=== PATIENT | female | born 1980 | race Caucasian/White ===

== ENCOUNTER 2022-03-04 15:53 | Emergency (ER) | payer OTHER ==
[2022-03-04] MEDS ORDERED: Boostrix 0.5 ML (Tdap) VIAL (>/=7 yrs of age) ONE (16:02)
[2022-03-04] MEDS ORDERED: Lidocaine 1% (PF) 30 ML VIAL ONE ×2 (16:02→16:11)
[2022-03-04] MEDS ORDERED: Bacitracin 1 PK ONE (16:27)
== END 2022-03-04 16:40 | disposition home or self-care (01) ==
LOC: NAV ERS 15:53
DX: S51.812A Laceration without foreign body of left forearm, initial encounter (principal); F17.210 Nicotine dependence, cigarettes, uncomplicated; W45.8XXA Other foreign body or object entering through skin, initial encounter
CPT/HCPCS: 12002; 90471; 90715; J2001

== ENCOUNTER 2022-03-16 12:14 | Emergency (ER) | payer OTHER | END 2022-03-16 12:50 | disposition home or self-care (01) | LOC: NAV ERS 12:14 | DX: S51.811D Laceration without foreign body of right forearm, subsequent encounter (principal); X58.XXXD Exposure to other specified factors, subsequent encounter ==

== ENCOUNTER 2022-04-04 15:03 | Emergency (ER) | payer OTHER ==
[2022-04-04] MEDS ORDERED: Ibuprofen 800 MG TAB ONE (15:22)
[2022-04-04] MEDS ORDERED: Lidocaine 2% PF 100 mg/5 ml Syringe ONE (15:46)
[2022-04-04] MEDS ORDERED: Bacitracin 1 PK ONE (16:26)
== END 2022-04-04 16:45 | disposition home or self-care (01) ==
LOC: NAV ERS 15:03
DX: S51.812A Laceration without foreign body of left forearm, initial encounter (principal); F17.210 Nicotine dependence, cigarettes, uncomplicated; W31.89XA Contact with other specified machinery, initial encounter
CPT/HCPCS: 12032; J2001

== ENCOUNTER 2022-04-10 08:29 | Emergency (ER) | payer OTHER | END 2022-04-10 09:03 | disposition home or self-care (01) | LOC: NAV ERS 08:29 | DX: L03.114 Cellulitis of left upper limb (principal); F17.210 Nicotine dependence, cigarettes, uncomplicated | CPT/HCPCS: 99283 ==

== ENCOUNTER 2022-04-14 11:15 | Emergency (ER) | payer OTHER | END 2022-04-14 12:00 | disposition home or self-care (01) | LOC: NAV ERS 11:15 | DX: L76.33 Postprocedural seroma of skin and subcutaneous tissue following a dermatologic procedure (principal); S51.812D Laceration without foreign body of left forearm, subsequent encounter; F17.210 Nicotine dependence, cigarettes, uncomplicated; X58.XXXD Exposure to other specified factors, subsequent encounter | CPT/HCPCS: 99282 ==

== ENCOUNTER 2022-09-28 16:24 | Emergency (ER) | payer OTHER, SELFPAY ==
[2022-09-28] MEDS ORDERED: Ketorolac Tromethamine 30 MG/ML VIAL ONE (16:50)
[2022-09-28 16:58] LABS: #Basophils 0.1 thou/uL (0.0-0.2); #Eosinphils 0.1 thou/uL (0.0-0.7); #Lymphocytes 3.2 thou/uL (1.20-3.40); #Monocytes 0.6 thou/uL (0.11-0.59); %Basophils 1.2 % (0.0-1.0); %Eosinophils 0.9 % (0.0-10.0); %Lymphocytes 28.9 % (21.0-51.0); %Monocytes 5.3 % (0.0-10.0); %Neutrophils 63.7 % (42.0-75.0); Hemoglobin 13.7 g/dL (12.0-16.0); Mean Corpuscular Hemoglobin 31.4 pg (27.0-31.0); Mean Platelet Volume 6.2 fL (7.4-10.4); Platelet Count 302 10x3/uL (130-400); RBC Distribution Width 11.5 % (11.5-14.5); Red Blood Cell (RBC) Count 4.36 mill/uL (4.20-5.40)
[2022-09-28 17:10] LABS: BHCG - Serum Negative (NEGATIVE); Pregs Control Bar Appear? YES (CONTROL BAR)
[2022-09-28 17:20] LABS: ALT (SGPT) 28 U/L (8-55); AST (SGOT) 14 U/L (5-34); Alkaline Phosphatase 59 U/L (40-110); Anion Gap 14 mmol/L (10-20); BUN (Urea Nitrogen) 12 mg/dL (7.0-18.7); Bilirubin, Total 0.1 mg/dL (0.2-1.2); Calc. Creatinine Clearance 0 mL/min (70-130); Calcium 9.3 mg/dL (7.8-10.44); Carbon Dioxide 21 mmol/L (22-29); Chloride 108 mmol/L (98-107); Estimated GFR 107; Glucose 89 mg/dL (70-105); Lipase 27 U/L (8-78); Sodium 139 mmol/L (136-145)
[2022-09-28] MEDS ORDERED: HYDROcodone/Acetaminophen 5/325 mg Tablet ONE (19:41)
[2022-09-28 20:19] LABS: Troponin I Less than 0.010 ng/mL (< 0.028)
== END 2022-09-28 20:50 | disposition home or self-care (01) ==
LOC: NAV ERS 16:24
DX: R07.81 Pleurodynia (principal); F17.210 Nicotine dependence, cigarettes, uncomplicated
CPT/HCPCS: 71045; 80053; 83690; 84484; 84703; 85025; 85379; 93005; 96374; J1885